=== PATIENT | male | born 1980 | race Caucasian/White ===

== ENCOUNTER 2019-04-01 13:07 | Emergency (ER) | payer SELFPAY ==
[2019-04-01] MEDS: LIDOCAINE/MYLANTA 40 ML BTL PO (14:23)
[2019-04-01] MEDS: DICYCLOMINE 20 MG INJ IM (14:27)
== END 2019-04-01 16:15 | disposition home or self-care (01) ==
LOC: FTE 16:15
DX: K21.9 Gastro-esophageal reflux disease without esophagitis (principal)
CPT/HCPCS: 96372; 99284-25